=== PATIENT | female | born 1945 | race Hispanic/Latino ===

== ENCOUNTER 2019-06-14 09:30 | Emergency (ER) | payer MEDICARE, OTHER ==
[~2019-06-14] VITALS: Ht 157.5 cm; Wt 95.2 kg
[2019-06-14] MEDS ORDERED: LOVASTATIN10 MG PO (10:24)
[2019-06-14] MEDS ORDERED: LISINOPRIL30 MG PO (10:24)
[2019-06-14] MEDS ORDERED: HYDROCHLOROTHIA25 MG PO (10:25)
[2019-06-14] MEDS ORDERED: NEURONTIN100 MG PO (10:25)
[2019-06-14] MEDS ORDERED: PREMARIN30 GM PV (10:25)
[2019-06-14] MEDS ORDERED: PROZAC10 MG PO (10:25)
[2019-06-14] MEDS ORDERED: ULTRAM50 MG PO (11:22)
--- OUTSIDE RECORDS SUMMARY | 2019-06-14 11:34 | XMS ---
PreManage Notification: FRANKIE GONZALEZ [employer] Events No recent Security Events currently on file CRITERIA MET - [facility] - 2 Visits in 30 Days CARE PROVIDERS LENNIE LY [facility] Current PHONE: Unknown Lennie Ly [facility] Current PHONE: Unknown [facility] has no Care Guidelines for this patient. Agustin VISIT COUNT (12 MO.) 2 [facility] [address] TOTAL 3 NOTE: Visits indicate total known visits. ED/UCC VISIT TRACKING (12 MO.) 06/14/2019 09:35 SELWYN Zepeda TYPE: Emergency COMPLAINT: - LEFT QUADRANT PAIN, POSSIBLE KIDNEY STONE? [facility]2019 08[facility] DIAGNOSES: - Near Syncope - fainted 06/02/2019 09:21 [facility] DIAGNOSES: - rt side pain, LOC - Nausea with vomiting, unspecified - Unspecified abdominal pain - Abdominal Pain - Emesis - Nausea INPATIENT VISIT TRACKING (12 MO.) No inpatient visits to display in this time frame [email or web address]
== END 2019-06-14 11:40 | disposition home or self-care (01) ==
LOC: ED 09:30
DX: R10.31 Right lower quadrant pain (principal); I10 Essential (primary) hypertension; E78.00 Pure hypercholesterolemia, unspecified; F32.9 Major depressive disorder, single episode, unspecified; Z79.899 Other long term (current) drug therapy
CPT/HCPCS: 74176; 81001; 99284-25